=== PATIENT | male | born 1950 | race Caucasian/White ===

== ENCOUNTER → 2023-08-18 06:20 | Day surgery (SDC) | payer OTHER, SELFPAY ==
[2023-08-18 08:00] LABS: Glucose - Point of Care 133 mg/dl (70-99)
== END ==
LOC: GI 06:20
PROVIDERS: ATTENDING PHYSICIAN Internal Medicine
DX: K63.89 Other specified diseases of intestine (principal); K52.9 Noninfective gastroenteritis and colitis, unspecified; K64.9 Unspecified hemorrhoids; Z80.0 Family history of malignant neoplasm of digestive organs
CPT/HCPCS: 45380; 88305; 82962

== ENCOUNTER → 2023-12-05 09:00 | Outpatient (REF) | payer OTHER, SELFPAY ==
[2023-12-05 13:00] VITALS: BMI 28.4
--- NOTE | 2023-12-06 14:40 | PTCARENOTE ---
Patients 12/04 ECG abnormal- reviwed by Dr. Goetz- no additional interventions required
== END ==
LOC: REG 09:00
PROVIDERS: ATTENDING PHYSICIAN Student in an Organized Health Care Education/Training Program; FAMILY PHYSICIAN Internal Medicine; OTHER PHYSICIAN Internal Medicine Cardiovascular Disease
DX: S92.355A Nondisplaced fracture of fifth metatarsal bone, left foot, initial encounter for closed fracture (principal)
CPT/HCPCS: 36415; 93005

== ENCOUNTER → 2024-02-12 08:29 | Outpatient (REF) | payer OTHER, SELFPAY | LOC: RAD 08:29 | PROVIDERS: ATTENDING PHYSICIAN Internal Medicine | DX: S92.902G Unspecified fracture of left foot, subsequent encounter for fracture with delayed healing (principal) | CPT/HCPCS: 77080 ==

== ENCOUNTER → 2024-05-01 11:32 | Outpatient (REF) | payer OTHER, SELFPAY | LOC: PAVMRI 11:32 | PROVIDERS: ATTENDING PHYSICIAN Student in an Organized Health Care Education/Training Program; FAMILY PHYSICIAN Internal Medicine | DX: M54.16 Radiculopathy, lumbar region (principal) | CPT/HCPCS: 72148 ==

== ENCOUNTER → 2024-08-05 07:03 | Outpatient (REF) | payer OTHER, SELFPAY | LOC: RCS 07:03 | PROVIDERS: ATTENDING PHYSICIAN Internal Medicine Cardiovascular Disease; FAMILY PHYSICIAN Internal Medicine | DX: I45.2 Bifascicular block (principal) | CPT/HCPCS: 93306 ==

== ENCOUNTER → 2024-08-08 06:39 | Outpatient (REF) | payer OTHER, SELFPAY | LOC: RAD 06:39 | PROVIDERS: ATTENDING PHYSICIAN Podiatrist; FAMILY PHYSICIAN Internal Medicine | DX: E11.9 Type 2 diabetes mellitus without complications (principal) | CPT/HCPCS: 93922 ==

== ENCOUNTER → 2024-11-06 16:02 | Outpatient (REF) | payer OTHER, SELFPAY ==
[2024-11-06 09:42] LABS: % Basophils 0.2 % (0-2); % Eosinophils 3.2 % (0-6); % Immature Granulocytes 0.1 % (0-0.5); % Lymphocytes 21.7 % (20.5-51.1); % Monocytes 9.7 % (1.7-9.3); % Neutrophils 65.1 % (42.2-75.2); Absolute Eosinophils 0.3 10^3/uL (0-0.7); Absolute Lymphocytes 1.8 10^3/uL (1.2-3.4); Absolute Monocytes 0.8 10^3/uL (0.1-0.6); Absolute Neutrophils 5.5 10^3/uL (1.4-6.5); Hemoglobin 13.3 g/dL (13.0-18.0); Mean Corp Hgb Conc. 32.4 g/dL (33.0-37.0); Mean Corpuscular Hgb 26.1 pg (27.0-31.0); Mean Corpuscular Volume 80.4 fL (80.0-94.0); Mean Platelet Volume 9.5 fL (7.4-10.4); Platelet Count 218 10^3/uL (130-400); Red Cell Dist. Width 14.3 % (11.5-14.5); White Blood Cell Count 8.5 10^3/uL (4.8-10.8)
== END ==
LOC: OIDL 16:02
PROVIDERS: ATTENDING PHYSICIAN Internal Medicine Hematology & Oncology
DX: D50.0 Iron deficiency anemia secondary to blood loss (chronic) (principal)
CPT/HCPCS: 85025

== ENCOUNTER 2024-11-12 06:34 | Day surgery (SDC) | payer OTHER, SELFPAY ==
[2024-11-12 07:39] LABS: Glucose - Point of Care 158 mg/dl (70-99)
== END 2024-11-12 09:20 | disposition home or self-care (01) ==
LOC: GI 06:34
PROVIDERS: ATTENDING PHYSICIAN Internal Medicine
DX: D50.9 Iron deficiency anemia, unspecified (principal); K22.0 Achalasia of cardia; K29.51 Unspecified chronic gastritis with bleeding; K22.89 Other specified disease of esophagus; K20.90 Esophagitis, unspecified without bleeding; Q39.9 Congenital malformation of esophagus, unspecified; K31.89 Other diseases of stomach and duodenum; K29.50 Unspecified chronic gastritis without bleeding; K22.10 Ulcer of esophagus without bleeding; Z98.890 Other specified postprocedural states
CPT/HCPCS: 43239; 88305; 82962; 88342

== ENCOUNTER 2025-05-01 06:39 | Day surgery (SDC) | payer OTHER, SELFPAY ==
[2025-05-01 07:59] LABS: Glucose - Point of Care 139 mg/dl (70-99)
== END 2025-05-01 09:51 | disposition home or self-care (01) ==
LOC: GI 06:39
PROVIDERS: ATTENDING PHYSICIAN Internal Medicine
DX: K22.0 Achalasia of cardia (principal); Q39.9 Congenital malformation of esophagus, unspecified; T18.128A Food in esophagus causing other injury, initial encounter; W44.F3XA Food entering into or through a natural orifice, initial encounter; D50.9 Iron deficiency anemia, unspecified
CPT/HCPCS: 43235; 82962

== ENCOUNTER → 2025-05-05 08:52 | Outpatient (REF) | payer OTHER, SELFPAY | LOC: RAD 08:52 | PROVIDERS: ATTENDING PHYSICIAN Internal Medicine; FAMILY PHYSICIAN Internal Medicine | DX: K22.0 Achalasia of cardia (principal) | CPT/HCPCS: 74246 ==